=== PATIENT | female | born 1965 | race Caucasian/White ===

== ENCOUNTER 2018-03-13 14:57 | Inpatient (IN) | payer OTHER ==
[~2018-03-13] VITALS: Ht 160 cm; Wt 90.7 kg
[~2018-03-13 14:57] MED LIST: ACETAMINOOPHEN-1 TAB PO; CATAFLAM50 MG PO; FLAGYL500MG PO
[2018-03-13] MEDS ORDERED: ALTACE2.5 MG PO (15:31)
[2018-03-13] MEDS ORDERED: METFORMIN HCL500 MG PO (15:31)
[2018-03-13] MEDS ORDERED: PRAVASTATIN SOD40 MG PO (15:31)
[2018-03-13] MEDS ORDERED: VITAMIN D10000 UNIT PO (15:32)
[2018-03-18] MEDS ORDERED: NAPR500T14 PO (09:49)
[2018-03-18] MEDS ORDERED: CIPRO500 MG PO (09:49)
[2018-03-18] MEDS ORDERED: COLACE100 MG PO (09:57)
== END 2018-03-18 10:59 | DRG 742 ==
LOC: EDSTATUS 15:00 → ADM 15:00 → OB/GYN 03-15 06:18 → O/R 03-15 06:18 → SURG 03-15 08:30 → OB/GYN 03-15 15:54
PROVIDERS: Obstetrics & Gynecology; Surgery; Urology
PROC: 0WQF0ZZ Repair Abdominal Wall, Open Approach (ICD-10-PCS; 2018-03-15)
PROC: 0T9880Z Drainage of Bilateral Ureters with Drainage Device, Via Natural or Artificial Opening Endoscopic (ICD-10-PCS; 2018-03-15)
PROC: 0UT90ZZ Resection of Uterus, Open Approach (ICD-10-PCS; principal; 2018-03-15 08:30)
PROC: 0UT10ZZ Resection of Left Ovary, Open Approach (ICD-10-PCS; 2018-03-15 08:30)
PROC: 0UT60ZZ Resection of Left Fallopian Tube, Open Approach (ICD-10-PCS; 2018-03-15 08:30)
DX: D25.1 Intramural leiomyoma of uterus (principal); K43.0 Incisional hernia with obstruction, without gangrene; K42.0 Umbilical hernia with obstruction, without gangrene; N94.89 Other specified conditions associated with female genital organs and menstrual cycle